=== PATIENT | male | born 1995 | race Caucasian/White ===

== ENCOUNTER → 2017-01-17 | Outpatient (CLI) | payer BC ==
[~2017-01-17] MED LIST: PHENERGAN25 M1 PO; ZOFRAN ODT4 MG PO
--- NOTE | ~2017-01-17 | CR264 ---
[facility] A Service of [facility] RADIOLOGY TEXT RESULTS PATIENT: LALO ROLLE LOCATION: [facility] : [birth year] UNIT #: [id number] AGE: [address]: CHANO MEIER MD SEX: M ORDER DR: [id number] [facility]. [place], [place] [address] [id number] O MR#: [id number] Acc #: [id number] NAME: LALO ROLLE : 1995 SEX: M STUDY DATE/TIME: 01/17/2017 9:24 UNIT: [facility] ROOM: STUDY DESCRIPTION: CR Upper GI Series W KUB Attending Physician: Chano Meier M.D. Referring Physician: Chano Meier M.D. Ordering Physician: Chano Meier M.D. Primary Care Physician: Chano Meier M.D. MEDICAL IMAGING REPORT This report is preliminary unless electronic signature is present EXAM Double contrast upper GI, 01/17/2017 HISTORY Abdominal pain and indigestion. PROCEDURE Study performed with a total of 22 spot images and 1.9 minutes of fluoroscopy. FINDINGS There is a small sliding hiatal hernia but there is no esophageal fold thickening, stricture, mass or ulceration. The gastric mucosal fold pattern is normal and gastric motility is normal. There is no fold thickening, mass or ulceration. Peristalsis is normal. The duodenum is normal. IMPRESSION Small sliding hiatal hernia, otherwise normal double-contrast upper GI. Dictated by... Jairo Castillo M.D. THIS IS AN ELECTRONICALLY VERIFIED REPORT Jairo Castillo M.D. at 01/21/2017 4:09 PM WILY/joseph TD: 01/17/2017 23:50 JOB #: [id number] [facility] A Service of [facility] RADIOLOGY TEXT RESULTS PATIENT: LALO ROLLE LOCATION: [facility] : [birth year] UNIT #: [id number] AGE: [address]: CHANO MEIER MD SEX: M ORDER DR: MEDICAL IMAGING REPORT Page 1 of 1 COPY
== END | disposition home or self-care (01) ==
LOC: CRAD 08:41
DX: K21.9 Gastro-esophageal reflux disease without esophagitis (principal); R12 Heartburn; K44.9 Diaphragmatic hernia without obstruction or gangrene
CPT/HCPCS: 74241